=== PATIENT | male | born 1945 | race Caucasian/White ===

== ENCOUNTER 2016-09-25 21:45 | Inpatient (IN) | payer MEDICARE, OTHER ==
--- NOTE | ~2016-09-25 | CO ---
Unit #: [id number] #: [id number] Patient: MY WEISS [id number] [address] [address] [id number] I MR#: [id number] NAME: MY WEISS. ROOM: 226 Age: 71 Sex: M Admission Date: 09/25/2016 : 1945 Attending Physician: Gina Lal M.D. Primary Care Physician: No Primary Care Physician CONSULTATION REPORT REASON FOR CONSULTATION 1. Urinary retention. 2. Urinary tract infection. 3. Left hydronephrosis. CHIEF COMPLAINT Difficulty urination and dysuria. HISTORY OF PRESENT ILLNESS The patient is a 71-year-old gentleman, who presents with a two-week history of what began as purulent and malodorous urine as well as decreasing force of stream. He found amoxicillin online and began taking that; however, symptoms worsened. He began having subjective fevers at home and chills with pain in the left flank. He did have one episode of gross hematuria. He presented to the emergency room and Mckinney catheter was placed with a large return of urine output. The patient denies previous treatment or evaluation of his prostate but he states that he has had "a large prostate." PAST MEDICAL HISTORY Essentially negative. PAST SURGICAL HISTORY None. MEDICATIONS 1. Amoxicillin. 2. Vitamins. 3. Azo. ALLERGIES None. FAMILY HISTORY Noncontributory. SOCIAL HISTORY The patient is here with his fiancee. He quit smoking 35 years ago. Negative for alcohol. REVIEW OF SYSTEMS A 12-point review of systems was performed. It was positive for left flank pain, gross hematuria, fevers, chills, abdominal pain. Unit #: [id number] #: [id number] Patient: MY WEISS PHYSICAL EXAMINATION GENERAL: Reveals a well-developed white male in no acute distress. VITAL SIGNS: Temperature 97.6, blood pressure 145/66, pulse 76, respirations 18. HEENT: Normocephalic and atraumatic. Extraocular movements are intact. NECK: Supple. No lymphadenopathy. LUNGS: Patient has symmetric chest rise and is breathing comfortably. ABDOMEN: Soft, nontender, nondistended. GENITOURINARY: He has a very large nonreducible bilateral inguinal hernias. RECTAL: His digital rectal exam reveals an enlarged prostate without nodules. EXTREMITIES: No clubbing, cyanosis, or edema. Pulses: Regular rate and rhythm radial pulses. DIAGNOSTIC STUDIES LABORATORY: Creatinine is 1.5 on admission, it is 1 after catheter placement. White blood cell count 19.4, hemoglobin 12.8. Urinalysis is nitrite positive, leukocyte esterase positive, 25-50 red blood cells, 100-200 white blood cells. IMAGING: CT scan: Noncontrasted CT scan of the abdomen and pelvis was reviewed independently with the findings of mild left hydroureteronephrosis down to the level of the bladder. Bladder is decompressed with a Mckinney catheter. He has a large prostate. ASSESSMENT AND PLAN 1. Urinary tract infection: I agree with the Rocephin. We will follow his cultures. 2. Urinary retention: Will switch his Flomax to Rapaflo (1) voiding trial in the future. 3. Left hydronephrosis: He may have passed a stone. We will repeat a renal ultrasound tomorrow. We will hold a stent right now because he is improving. 4. Gross hematuria: He will need a cystoscopy later in the future as an outpatient and possibly a contrasted study as well. Dictated by... Eamon Toussaint/roger TD: 09/26/2016 12:50 JOB #: [id number] CONSULTATION REPORT Page 1 of 1 X Hema Mcfadden MD X CONSULTATION REPORT
--- NOTE | ~2016-09-25 | HP ---
Unit #: [id number] #: [id number] Patient: MY WEISS [id number] [address] [place], [place] [address] [id number] I MR#: [id number] NAME: MY WEISS. ROOM: 05871 Age: 71 Sex: M Admission Date: 09/25/2016 : 1945 Attending Physician: Blanka Gaines M.D. Primary Care Physician: No Primary Care Physician HISTORY AND PHYSICAL CHIEF COMPLAINT Left pyelonephritis, bladder outlet obstruction, and acute kidney injury. HISTORY This pleasant, 71-year-old male with history of bilateral inguinal hernias is admitted for bladder outlet obstruction with pyelonephritis. Patient states that he was well until two weeks prior to admission when he began to experience dysuria and malodorous urine with some purulence of the urine. He was able to obtain amoxicillin online and has been taking 500 mg t.i.d. He began to experience left flank pain; some fevers and chills; and, two nights ago, mild hematuria. Around 11 o'clock today, he felt feverish with pain in the penis itself and suprapubic pain with difficulty voiding. He presented to this emergency department tonight with an elevated blood pressure and purulent urine. A Mckinney catheter was placed and the patient had a large amount of urinary output. CT scan shows mild left hydro with mild left hydroureter, but no stone is seen. Large bilateral inguinal hernias are also noted. Marked enlargement of the prostate. In the ER, the patient was given 4 mg of IV morphine and is receiving 2 g of Rocephin along with a liter of saline. He is tender, left flank region. Also noted to have very large bilateral inguinal hernias. PAST MEDICAL HISTORY 1. Inguinal hernias, which the patient has been reducing frequently. 2. History of a murmur as a child. ALLERGIES None. HOME MEDICATIONS 1. Amoxicillin. 2. Vitamins. 3. Azo. FAMILY HISTORY Negative for kidney disease, except for post infectious nephritis. SOCIAL HISTORY The patient lives alone with his cats, but he is accompanied by his fiancee. He stopped smoking 35 years ago. No longer drinks alcohol. REVIEW OF SYSTEMS Notable for urinary symptoms as dictated above, fevers, chills, abdominal Unit #: [id number] #: [id number] Patient: MY WEISS W pain, and inguinal hernias. Patient also notes some sinus and bronchial symptoms along with itchy eyes and a rash. All other systems were reviewed and are negative. PHYSICAL EXAMINATION GENERAL APPEARANCE: Pleasant, 71-year-old male who is pale appearing, mildly anxious, but in no acute distress. VITAL SIGNS: Temperature 98.3, pulse 107, respirations 18, blood pressure 189/110, and O2 saturation 100% on room air. HEENT: Eyes: PERRLA. Extraocular muscles are intact. Pharynx: Benign. NECK: Supple without adenopathy or thyromegaly. CHEST: Clear. BACK: With left CVA percussion tenderness. CARDIAC: Normal S1 and S2 with a soft systolic murmur heard at the right upper sternal border; however, systolic and diastolic murmurs are heard at the left side and towards the apex. ABDOMEN: Bowels sounds are present. No hepatosplenomegaly, tenderness, or masses. EXTREMITIES: Without C, C, or E. Pedal pulses are present. No splinter hemorrhages noted over the fingernail beds. : Reveals large bilateral inguinal hernias. NEUROLOGIC: Patient is awake, alert, and oriented. Cranial nerves are intact. Equal strength throughout. DIAGNOSTIC STUDIES LABORATORY: Hematocrit is 44.5, white blood count is 21.2, normal MCV and platelet count with 4 bands noted. SMA-12: Glucose 194, BUN 33, creatinine 1.5 without previous values for comparison, CO2 19, and albumin is 5.3. Amylase mildly elevated with normal lipase. Urinalysis: Positive leukocyte esterase and nitrates, 25-50 red cells, 100-200 white cells, and 4+ bacteria. IMAGING: CT scan: Mild left hydronephrosis and hydroureter. However, no stone is seen. This may be consistent with a passed stone. Large bilateral inguinal hernias containing fat. Left hernia contains colon. Right hernia contains small bowel. Marked enlargement of the prostate. ASSESSMENT 1. Left-sided pyelonephritis with mild left hydroureter and hydronephrosis. Patient may have passed a stone, I am unsure. 2. BPH with bladder outlet obstruction. 3. Acute kidney injury likely related to bladder outlet obstruction. 4. Likely reactive hyperglycemia. 5. Likely reactive hypertension. Will repeat blood pressure when patient is more relaxed and no longer in pain. 6. Systolic and diastolic murmurs on exam. 7. Metabolic acidosis secondary to acute kidney injury and infection. 8. Large bilateral inguinal hernias, which the patient is reducing on a frequent basis. PLANS 1. IV fluids and repeat labs in the morning. 2. Continue Rocephin. 3. Flomax. 4. Urology consultation. 5. Obtain EKG and echo. Check thyroid function test. 6. Patient will be given name of [facility] at time of discharge for elective inguinal hernia repair as an outpatient. Unit #: [id number] #: [id number] Patient: MY WEISS Dictated by Eamon Canales/maricruz TD: 09/26/2016 05:11 JOB #: [id number] HISTORY AND PHYSICAL Page 1 of 1 X Blanka Gaines MD X HISTORY AND PHYSICAL
--- NOTE | ~2016-09-25 | CO ---
Unit #: [id number] #: [id number] Patient: MY WEISS [id number] [address] [place], [place] [address] [id number] I MR#: [id number] NAME: MY WEISS ROOM: 226 Age: 71 Sex: M Admission Date: 09/25/2016 : 1945 Attending Physician: Guera Pitt M.D. Consultation Date: 09/27/2016 CONSULTATION REPORT BRIEF SUMMARY The patient is a 71-year-old white male, who was admitted complaining of flank pain with evidence of probably some pyelonephritis and urinary tract infection. He also has chronic large bilateral partially reducible inguinal hernias which he has had for over 10 years. The right side seems to be slightly more symptomatic than the left. He has had no obstructive symptoms in the past. He denies any chronic straining with urination or defecation up until now when he had problems with urinary retention. He has had no chronic cough. He has had a heart murmur since childhood which he states is asymptomatic. He has never been in the hospital and never been seen by doctor in the past. PHYSICAL EXAMINATION VITAL SIGNS: The patient is afebrile. Vital signs are normal. HEENT: Not remarkable. NECK: Supple. CHEST: There is equal bilateral expansion with bilateral equal breath sounds. LUNGS: Clear bilaterally. HEART: There is a grade 3/6 systolic ejection murmur best heard at the left upper sternal border. No evidence of any cardiomegaly clinically. ABDOMEN: Soft and nontender without mass or organomegaly. There is no gross abdominal distention. No guarding or rebound. Active bowel sounds present. No evidence of ascites. There are bilateral large partially reducible inguinal hernias with a very dilated scrotum. EXTREMITIES: Full range of motion without limitation. There is no evidence of peripheral edema. BACK: There is no CVA tenderness. NEUROLOGIC: Grossly intact. IMPRESSION The patient has large bilateral asymptomatic inguinal hernias with recent urinary tract infection and pyelonephritis and heart murmur. Would recommend Cardiology evaluation with clearance for surgery and after his urinary tract problems are resolved, would plan on inguinal hernia repairs one at a time electively in several weeks. Dictated by... Juan Snow Jr., M.D. JMB/arlene TD: 09/27/2016 06:43 Unit #: [id number] #: [id number] Patient: ISELA,MY Estevez JOB #: [id number] CONSULTATION REPORT Page 1 of 1 X Juan Snow MD CONSULTATION REPORT
--- NOTE | ~2016-09-25 | EKG ---
PATIENT: MY WEISS UNIT #: [id number] Ventricular Rate: 67 BPM Atrial Rate: 67 BPM P-R Interval: 224 ms QRS Duration: 102 ms Q-T Interval: 434 ms QTC Calculation(Bezet): 458 ms P Colton: 89 degrees Calculated R Colton: 46 degrees Calculated T Colton: 144 degrees Diagnosis Line: Sinus rhythm with 1st degree A-V block with Diagnosis Line: Premature atrial complexes Diagnosis Line: Septal infarct , age undetermined Diagnosis Line: ST and T wave abnormality, consider inferior Diagnosis Line: ischemia Diagnosis Line: Abnormal ECG Diagnosis Line: No previous ECGs available Diagnosis Line: Confirmed by RODNEY HOWELL MD ([id number]) on 09/28/2016 Diagnosis Line: 8:27:41 PM INTERPRETING MD: DANTE MILLER
--- NOTE | ~2016-09-25 | CT3 ---
[facility] A Service of [facility] & [facility] RADIOLOGY TEXT RESULTS PATIENT: MY WEISS LOCATION: A : [birth year] UNIT #: [id number] AGE: [address]: Guera Pitt MD SEX: M ORDER DR: [id number] [facility] [address] [facility] [facility]. [place], [place] [address] [id number] I MR#: [id number] Acc #: [id number] NAME: MY WEISS : 1945 SEX: M STUDY DATE/TIME: 09/26/2016 15:05 UNIT: C2A ROOM: [facility] STUDY DESCRIPTION: CT Abd and Pelv WWo Cont Attending Physician: Gina Lal M.D. Ordering Physician: Hema Mcfadden M.D. Primary Care Physician: No Primary Care Physician MEDICAL IMAGING REPORT This report is preliminary unless electronic signature is present EXAM CT of the abdomen and pelvis with and without contrast. INDICATIONS Difficulty urinating and burning urination since September 25, 2016. Patient had a CT scan on September 25 which showed left-sided hydronephrosis. TECHNIQUE Axial precontrast imaging was obtained through the abdomen and pelvis. This was followed by arterial phase and 90-second delayed-phase imaging through the kidneys and 5-minute delayed-phase imaging through the abdomen and pelvis. This CT exam was performed with one or more of the following radiation dose reduction techniques: automatic exposure control, adjustment of mA and/or kV according to patient size, and iterative reconstruction. FINDINGS Images through the lung bases demonstrate some bibasilar atelectasis. The patient does appear to have some mild left-sided hydronephrosis. There is a mildly prominent extrarenal pelvis on the right without ridge hydronephrosis. No renal stones are identified. There is some perinephric stranding. There is a tiny low-attenuation lesion identified within the left kidney which could reflect a cyst, but is too small to accurately characterize. Single renal arteries are identified bilaterally, and renal vein anatomy appears to be within normal limits. Single renal collecting systems are identified bilaterally. Patient does not have any contrast extending past the left ureteropelvic junction, and the distal ureter appears dilated. There is a suggestion of an asymmetric mass involving the left ureterovesical junction. It is difficult to assess as the patient does not have excreted contrast material within the bladder. It could reflect some enlarged prostate gland, however, again I think the findings are suspicious for a mass involving the left bladder [facility] A Service of [facility] RADIOLOGY TEXT RESULTS PATIENT: MY WEISS LOCATION: [facility] 226- : [birth year] UNIT #: [id number] AGE: [address]: Guera Pitt MD SEX: M ORDER DR: hoa muñiz. This could certainly account for the patient's dilated left ureter. This patient has a Mckinney catheter in place. There is bladder wall thickening, some of which may reflect incomplete distension. Patient's prostate gland is markedly enlarged and there are extremely large bilateral inguinal hernias containing much of the omentum and bowel. There, is however, no evidence of obstruction.. Liver appears unremarkable as is the spleen. Stomach is probably within normal limits. Again, there is no evidence of mechanical bowel obstruction. There may be a lipid rich adrenal adenoma on the right. Left adrenal gland is normal. I do not think retroperitoneal lymph nodes appear particularly large. There is some atherosclerotic involvement of the abdominal aorta. This does extend into the superior mesenteric artery, which does appear to show some narrowing in the range of about 40% in its midportion. I do not see any free fluid or adenopathy within the pelvis. Review of bony windows demonstrates extensive degenerative change most pronounced at L4-L5 and L5-S1, although, I do not see any definite aggressive osseous abnormalities. IMPRESSION 1. This patient has mild left-sided hydronephrosis. On the 5-minute delayed phase images, I do not see any excreted contrast material within the ureter distal to the left ureteropelvic junction. The possibility of left UPJ stricture should be considered. Furthermore, the patient's distal left ureter is very dilated, and I wonder if it is being obstructed by a potential mass involving the left side of the bladder. This may reflect some protrusion of the prostate gland into the bladder, but I think it is certainly worrisome for an additional mass lesion. Correlation with cystoscopy is recommended. 2. Mildly prominent extrarenal pelvis on the right. No evidence of obstruction. 3. Patient does have a Mckinney catheter in place. Patient's prostate gland is markedly enlarged. 4. This patient has massive bilateral inguinal hernias with much of the bowel and omentum contained within the scrotum, this does not appear to be resulting in any obstruction. 5. Please see the body of the report for any other additional incidental findings. Dictated by... Rahel Escalera M.D. THIS IS AN ELECTRONICALLY VERIFIED REPORT Rahel Escalera M.D. at 09/29/2016 4:51 PM AFF/jt TD: 09/26/2016 20:50 JOB #: [id number] [facility] A Service of [facility] & [facility] RADIOLOGY TEXT RESULTS PATIENT: MY WEISS LOCATION: [place] [address] : [birth year] UNIT #: [id number] AGE: [address]: Guera Pitt MD SEX: M ORDER DR: MEDICAL IMAGING REPORT Page 1 of 1 COPY
--- NOTE | ~2016-09-25 | DS ---
Unit #: [id number] #: [id number] Patient: MY WEISS [id number] [address] [address] [id number] I MR#: [id number] NAME: MY WEISS. ROOM: 226 Age: 71 Sex: M Admission Date: 09/25/2016 : 1945 Discharge Date: 09/29/2016 Attending Physician: Guera Pitt M.D. Primary Care Physician: No Primary Care Physician DISCHARGE SUMMARY DIAGNOSIS ON ADMISSION Left pyelonephritis, acute kidney injury, bladder outlet obstruction. DIAGNOSES ON DISCHARGE 1. Acute Escherichia coli cystitis. 2. Acute urinary retention. 3. Benign prostatic hypertrophy. 4. Hydronephrosis. 5. Bilateral large inguinal hernias. 6. Sepsis, improved. CONSULTANTS 1. Dr. Snow - Surgical consultation. 2. Dr. Mcfadden - Urology consultation. LABS AND PROCEDURES DONE The patient's creatinine is 0.9, sodium 131, potassium is 4.1. AST and ALT are within normal limits. WBC 6.8, hemoglobin is 12.9, platelet count is 149. Urine culture was positive for E. coli which is sensitive to Bactrim. The patient had a CT scan of abdomen and pelvis done which revealed left sided hydronephrosis. The patient has massive bilateral inguinal hernias. Hemoglobin A1c is 5.6. Vitamin B12 level was 1153. TSH level was 1.34. HOSPITAL COURSE 71-year-old male was admitted to [facility] with left pyelonephritis. Details are as per admission H and P. The patient stated that he is in his usual good state of health and he did not see any doctor for the last 35 years. He had bilateral inguinal hernias though. Bilateral inguinal hernias: Dr. Snow saw patient in consultation and recommended to do surgery on an outpatient basis once patient's infection is cleared. Acute Escherichia coli cystitis and possible pyelonephritis: The patient was treated with initially IV antibiotics and he will be discharged home on Bactrim. Left hydronephrosis: Dr. Mcfadden has recommended to follow up on Unit #: [id number] #: [id number] Patient: ISELA,MY W outpatient basis. Acute urinary retention secondary to benign prostatic hypertrophy: The patient's Mckinney catheter is discontinued today and he has not voided yet. If patient is unable to void, then we will call Dr. Mcfadden and he may go home with Mckinney catheter. The patient also has a history of murmur and he had an echo done with ejection fraction of 50% to 55%. The murmur was related to probably aortic outflow. The patient had mild tricuspid regurgitation. Today, patient is comfortable. He is not in acute distress. He is anxious to go home. VITAL SIGNS reveal a temperature of 99 degrees, pulse is 62/minute, respiratory rate is 18/minute, blood pressure was 170/98. HEENT examination revealed no conjunctival congestion. Sclerae is nonicteric. NECK is supple, trachea is central. RESPIRATORY examination revealed decreased breath sounds bilaterally. There are no wheezes or crackles. HEART has regular rate and rhythm, S1, S2. Systolic murmur is present. ABDOMEN is soft, nontender. Bowel sounds are present in all four quadrants. NEUROLOGICALLY, patient is alert to person, place and time. Strength is 4+ bilaterally. SKIN is warm and dry. GENITOURINARY - patient has bilateral large inguinal hernias with scrotal swelling which are (1) reducible. RECOMMENDATIONS ON DISCHARGE 1. Condition is stable. 2. Activity as tolerated. MEDICATIONS 1. Rapaflo 8 mg p.o. q. h.s. 2. Tylenol 650 mg p.o. q.4 hours p.r.n. for pain. 3. Bactrim DS, one p.o. b.i.d. for one week. FOLLOWUP 1. The patient is advised to follow up with Urology in one week and with Dr. nSow in two weeks. 2. The patient is advised to follow up with primary care physician or go to ER if his condition changes. The patient stated that he is trying to find a primary care physician and has a list given by the hospital. The patient shows understanding to the fact that his compliance is very important. Dictated by... Eamon Hart TD: 09/29/2016 12:22 JOB #: [id number] CC: Eamon Toussaint Jr., M.D. Unit #: [id number] #: [id number] Patient: MY WEISS DISCHARGE SUMMARY Page 1 of 1 X Guera Pitt MD DISCHARGE SUMMARY
--- NOTE | ~2016-09-25 | CT4 ---
[facility] A Service of [facility] & [facility] RADIOLOGY TEXT RESULTS PATIENT: MY WEISS LOCATION: [facility] 226-01 : 47 UNIT #: [id number] AGE: [address]: Gina Lal MD SEX: M ORDER DR: [id number] [facility] [address] [place], [place] [address] [id number] MR#: [id number] Acc #: [id number] NAME: MY WEISS. : 1945 SEX: M STUDY DATE/TIME: 09/25/2016 21:58 UNIT: CEDOF ROOM: [id number] STUDY DESCRIPTION: CT Abd and Pelv Wo Cont Attending Physician: Blanka Gaines M.D. Ordering Physician: Nikita Sun M.D. Primary Care Physician: Primary Care Physician No MEDICAL IMAGING REPORT This report is preliminary unless electronic signature is present EXAM CT scan of the abdomen and pelvis without contrast 09/25/2016 HISTORY Difficulty urinating, burning urination since 11:00 a.m. today. Urinary tract infection, left flank pain and bilateral groin pain today. Evaluate for obstructing renal calculus. TECHNIQUE Spiral CT was performed through the abdomen and pelvis without oral or intravenous contrast administration using renal stone protocol. This CT examination was performed with one or more of the following radiation dose reduction techniques: automatic exposure control, adjustment of mA and/or kV according to patient size, and iterative reconstruction. FINDINGS There is no prior exam for comparison. There is mild left hydronephrosis and hydroureter but no obstructing renal or ureteral calculus is seen. Findings could reflect a recently passed stone but no calculus is seen within the bladder. Clinical correlation is recommended. The right kidney is normal. The visualized liver, spleen, pancreas, gallbladder and biliary tree and adrenal glands are normal. PELVIS: There are large bilateral inguinal hernias. The right inguinal hernia contains a loop of small bowel and the left inguinal hernia contains colon. There is no evidence of bowel obstruction. The gut is otherwise unremarkable. No adenopathy is seen and there is no free fluid in the abdomen or pelvis. The bladder is partially decompressed by Mckinney catheter. There is marked enlargement of the prostate which measures 7.3 cm x 5.9 cm x approximately 6 cm. IMPRESSION 1. Mild left hydronephrosis and hydroureter but no obstructing renal or STS. [facility] A Service of [facility] & [facility] / [facility] RADIOLOGY TEXT RESULTS PATIENT: MY WEISS LOCATION: [facility] 226-01 : [birth year] UNIT #: [id number] AGE: [address]: Gina Lal MD SEX: M ORDER DR: ureteral calculus is seen. Findings may reflect a recently passed stone but no calculus is seen within the bladder. Clinical correlation is recommended. 2. Large bilateral inguinal hernias containing mesenteric fat. The right inguinal hernia contains a loop of small bowel and the left inguinal hernia contains a loop of colon. No bowel obstruction is seen. 3. Marked enlargement of the prostate. Dictated by... David Eisenberg M.D. THIS IS AN ELECTRONICALLY VERIFIED REPORT Dvaid Eisenberg M.D. at 09/26/2016 3:40 PM ANANDA/catrina TD: 09/26/2016 06:06 JOB #: [id number] MEDICAL IMAGING REPORT Page 1 of 1 COPY
[2016-09-25 21:18] LABS: BASOPHIL% 0.2 % (0-2.5); DIFF IND YES; HEMATOCRIT 44.5 % (38.0-50.0); HEMOGLOBIN 14.6 gm/dL (13.0-16.0); LYMPHOCYTE# 0.4 X10e3 (1.0-3.5); LYMPHOCYTE% 1.7 % (17.0-45.0); MEAN CELL VOLUME 84.8 FL (83-96); MEAN CORPUSCULAR HEMOGLOBIN 27.8 PG (28-34); MEAN CORPUSCULAR HGB CONC 32.8 g/dL (30-36); MEAN PLATELET VOLUME 9.9 FL (6.5-11.5); MONOCYTE# 0.9 X10e3 (0-1.0); MONOCYTE% 4.4 % (3.0-12.0); NEUTROPHIL# 19.9 X10e3 (1.5-7.1); NEUTROPHIL% 93.7 % (40-75); PLATELET COUNT 227 X10e3 (140-420); RED BLOOD COUNT 5.24 X10e (3.90-5.60); RED CELL DISTRIBUTION WIDTH 13.8 % (11.0-15.5); WHITE BLOOD COUNT 21.2 X10e3 (4.0-10.5)
[2016-09-25 21:43] LABS: ALBUMIN SERUM 5.3 g/dL (3.5-5.0); BILIRUBIN, DIRECT 0.1 mg/dL (0.0-0.2); BILIRUBIN,TOTAL 1.1 mg/dL (0.2-2.0); CALCIUM SERUM 9.8 mg/dL (8.4-10.2); CREATININE SERUM 1.5 mg/dL (0.6-1.4); GLOM FILT RATE Estimated 46.8 mL/min (>60); POTASSIUM 4.4 mmol/L (3.5-5.1); PROTEIN TOTAL SERUM 8.5 g/dL (6.0-8.3)
[2016-09-25 22:24] LABS: URINE APPEARANCE CLOUDY; URINE BILIRUBIN NEG (NEG); URINE BLOOD 3+ (NEG); URINE COLOR DK YELLOW; URINE GLUCOSE NEG (NEG); URINE KETONE NEG (NEG); URINE LEUKOCYTE ESTERASE 3+ (NEG); URINE NITRATE POS (NEG); URINE PROTEIN 1+ (NEG); URINE SPECIFIC GRAVITY 1.012 (1.003-1.035)
[2016-09-25 22:25] LABS: PLATELET ESTIMATE NORMAL (NORMAL); RBC NORMAL YES; SMUDGE CELLS 12 /100
[2016-09-25 22:27] LABS: CULTURE INDICATED? YES; URBCS1 AUWI 25-50 /[HPF] (0-2); URINE BACTERIA AUWI 4+ (NEGATIVE); URINE SQUAMOUS EPITHELIAL CELL NONE SEEN /[HPF]; UWBCS1 AUWI 100-200 (0-5)
[2016-09-25 22:31] LABS: URINE SOURCE CATH
[2016-09-26 04:00] LABS: BASOPHIL% 0.1 % (0-2.5); DIFF IND NO; HEMATOCRIT 39.4 % (38.0-50.0); HEMOGLOBIN 12.8 gm/dL (13.0-16.0); LYMPHOCYTE# 0.8 X10e3 (1.0-3.5); LYMPHOCYTE% 4.2 % (17.0-45.0); MEAN CELL VOLUME 84.9 FL (83-96); MEAN CORPUSCULAR HEMOGLOBIN 27.5 PG (28-34); MEAN CORPUSCULAR HGB CONC 32.4 g/dL (30-36); MEAN PLATELET VOLUME 9.6 FL (6.5-11.5); MONOCYTE% 5.3 % (3.0-12.0); NEUTROPHIL# 17.5 X10e3 (1.5-7.1); NEUTROPHIL% 90.4 % (40-75); PLATELET COUNT 168 X10e3 (140-420); RED BLOOD COUNT 4.64 X10e (3.90-5.60); RED CELL DISTRIBUTION WIDTH 13.7 % (11.0-15.5); WHITE BLOOD COUNT 19.4 X10e3 (4.0-10.5)
[2016-09-26 04:25] LABS: CALCIUM SERUM 8.8 mg/dL (8.4-10.2); GLOM FILT RATE Estimated 76.5 mL/min (>60); POTASSIUM 3.8 mmol/L (3.5-5.1)
[2016-09-26 04:56] LABS: THYROID STIMULATING HORMONE 1.34 uIU/ml (0.34-5.60)
[2016-09-26 05:03] LABS: FREE THYROXIN (T4) 0.92 ng/dL (0.58-1.64)
[2016-09-26] MEDS ORDERED: NO MEDICATIONS (08:20)
[2016-09-27 06:16] LABS: HEMATOCRIT 35.8 % (38.0-50.0); HEMOGLOBIN 11.8 gm/dL (13.0-16.0); MEAN CELL VOLUME 84.7 FL (83-96); MEAN CORPUSCULAR HEMOGLOBIN 27.9 PG (28-34); MEAN CORPUSCULAR HGB CONC 32.9 g/dL (30-36); MEAN PLATELET VOLUME 9.8 FL (6.5-11.5); RED BLOOD COUNT 4.22 X10e (3.90-5.60); RED CELL DISTRIBUTION WIDTH 13.7 % (11.0-15.5)
[2016-09-27 06:19] LABS: WHITE BLOOD COUNT 8.8 X10e3 (4.0-10.5)
[2016-09-27 07:43] LABS: CALCIUM SERUM 8.2 mg/dL (8.4-10.2); CREATININE SERUM 0.9 mg/dL (0.6-1.4); GLOM FILT RATE Estimated 86.8 mL/min (>60); POTASSIUM 3.4 mmol/L (3.5-5.1)
[2016-09-29 07:19] LABS: HEMATOCRIT 39.9 % (38.0-50.0); HEMOGLOBIN 12.9 gm/dL (13.0-16.0); MEAN CELL VOLUME 86.2 FL (83-96); MEAN CORPUSCULAR HEMOGLOBIN 27.9 PG (28-34); MEAN CORPUSCULAR HGB CONC 32.3 g/dL (30-36); MEAN PLATELET VOLUME 9.7 FL (6.5-11.5); RED BLOOD COUNT 4.63 X10e (3.90-5.60); WHITE BLOOD COUNT 6.8 X10e3 (4.0-10.5)
[2016-09-29 07:45] LABS: BUN/CREATININE RATIO 15.55; CALCIUM SERUM 8.8 mg/dL (8.4-10.2); CREATININE SERUM 0.9 mg/dL (0.6-1.4); GLOM FILT RATE Estimated 86.8 mL/min (>60); POTASSIUM 4.1 mmol/L (3.5-5.1)
[2016-09-29] MEDS ORDERED: RAPAFLO8 MG PO (13:00)
[2016-09-29] MEDS ORDERED: ACETAMINOPHEN (13:01)
[2016-09-29] MEDS ORDERED: BACTRIM DS TAB1 EACH (13:01)
[2016-12-18] MEDS ORDERED: [UNRECOGNIZED DRUG - OTHER] TOP (06:53)
[2016-12-18] MEDS ORDERED: DIFLUCAN10 MG/1 ML PO (06:54)
[2016-12-18] MEDS ORDERED: DIFLUCAN PO (06:57)
[2016-12-18] MEDS ORDERED: MAGNESIUM CITR100 MG PO (15:15)
[2016-12-18] MEDS ORDERED: MILK OF MAGNESIA PO (15:17)
[2017-01-29] MEDS ORDERED: BUSPIRONE HCL7.5 MG PO (15:08)
[2017-01-29] MEDS ORDERED: ALPRAZOLAM0.5 MG PO (15:08)
[2017-01-29] MEDS ORDERED: DESYREL50 MG PO (15:08)
[2017-01-29] MEDS ORDERED: FLOMAX0.4 M1 (15:09)
[2017-01-29] MEDS ORDERED: PAROXETINE HCL20 MG PO (15:09)
[2017-01-29] MEDS ORDERED: ZESTRIL5 MG PO (15:09)
[2017-01-29] MEDS ORDERED: ZOFRAN8 MG PO (15:11)
[2017-01-29] MEDS ORDERED: OMEPRAZOLE40 M1 PO (15:12)
[2017-01-29] MEDS ORDERED: TRAMADOL HCL50 M1 PO (15:12)
[2017-01-29] MEDS ORDERED: POTASSIUM CHLO10 ME1 PO (15:13)
[2017-01-29] MEDS ORDERED: LASIX20 MG PO (15:13)
[2017-01-29] MEDS ORDERED: STOOL SOFTENER100 M1 PO (15:14)
[2017-01-29] MEDS ORDERED: MULTI VITAMIN1 EACH PO (15:15)
[2017-01-29] MEDS ORDERED: GAS RELIEF125 M1 PO (15:15)
[2017-01-29] MEDS ORDERED: LAXATIVE5 MG (15:16)
[2017-01-29] MEDS ORDERED: MELATIN3 MG (15:17)
[2017-02-14] MEDS ORDERED: BUSPIRONE HCL7.5 MG PO (20:19)
[2017-02-14] MEDS ORDERED: XANAX0.5 MG PO (20:19)
[2017-02-14] MEDS ORDERED: ZESTRIL5 MG PO (20:20)
[2017-02-14] MEDS ORDERED: PAROXETINE HCL20 M1 PO (20:20)
[2017-02-14] MEDS ORDERED: TRAMADOL HCL50 M1 PO (20:21)
[2017-02-14] MEDS ORDERED: FLOMAX0.4 M1 PO (20:21)
[2017-02-14] MEDS ORDERED: DESYREL50 MG PO (20:22)
[2017-02-17] MEDS ORDERED: FLONASE 0.05% N16 GM (09:52)
[2017-02-17] MEDS ORDERED: TYLENOL #4 PO (09:53)
[2017-02-17] MEDS ORDERED: CEFEPIME 22 GM/100 M IV (09:54)
== END 2016-09-29 18:14 | disposition home health service (06) | DRG 872 ==
LOC: CED 21:45 → CEDOF 23:50 → C2A 09-26 07:50
PROVIDERS: Emergency Medicine; Internal Medicine
PROC: B246ZZZ Ultrasonography of Right and Left Heart (ICD-10-PCS; principal; 2016-09-26)
DX: A41.9 Sepsis, unspecified organism (principal); N17.9 Acute kidney failure, unspecified; I07.1 Rheumatic tricuspid insufficiency; N13.4 Hydroureter; N30.01 Acute cystitis with hematuria; N12 Tubulo-interstitial nephritis, not specified as acute or chronic; B96.20 Unspecified Escherichia coli [E. coli] as the cause of diseases classified elsewhere; N40.1 Benign prostatic hyperplasia with lower urinary tract symptoms; R33.8 Other retention of urine; K40.20 Bilateral inguinal hernia, without obstruction or gangrene, not specified as recurrent; N32.0 Bladder-neck obstruction; R01.1 Cardiac murmur, unspecified; Z87.891 Personal history of nicotine dependence; E87.6 Hypokalemia
CPT/HCPCS: 36415; 51702; 74176; 74178; 80048; 80076; 81003; 82150; 82607; 83036; 83690; 84439; 84443; 85025; 85027; 87086; 87088; 87186; 93005; 93306; 96374; 99285; J0696; J2270; J2405; J3480; Q9967

== ENCOUNTER 2016-10-11 07:53 | Emergency (ER) | payer MEDICARE, OTHER ==
--- NOTE | ~2016-10-11 | CT4 ---
[facility] A Service of [facility] & [facility] RADIOLOGY TEXT RESULTS PATIENT: YM WEISS LOCATION: [facility] : 47 UNIT #: [id number] AGE: [address]: Seth Camp DO SEX: M ORDER DR: [id number] [facility] [address] [place], [place] [address] [id number] MR#: [id number] Acc #: [id number] NAME: MY WEISS : 1945 SEX: M STUDY DATE/TIME: 10/11/2016 10:48 UNIT: [facility] ROOM: STUDY DESCRIPTION: CT Abd and Pelv Wo Cont Attending Physician: Seth Camp D.O. Ordering Physician: Seth Camp D.O. Primary Care Physician: No Primary Care Physician MEDICAL IMAGING REPORT This report is preliminary unless electronic signature is present EXAM Abdomen and pelvis CT without contrast. HISTORY Urinary retention intermittently since 09/25/2016. Urinary tract infection. TECHNIQUE Axial images were obtained without contrast and compared with 09/26/2016. This CT exam was performed with one or more of the following radiation dose reduction techniques: automatic exposure control, adjustment of mA and/or kV according to patient size, and iterative reconstruction. FINDINGS The liver, spleen, and pancreas are normal in size. Bilateral hydronephrosis is again seen to a mild degree and the ureters are dilated to a moderate degree. This is unchanged. A Mckinney catheter is seen in the bladder. The prostate gland is markedly enlarged. Bladder wall thickening is noted. This is also unchanged. There are large bilateral inguinal hernias. Both of the hernias containing loops of bowel extending down into the scrotum. This is more extensive on the left than on the right and has not changed from the previous exam. There is no evidence of bowel obstruction. The antrum of the stomach is pulled down nearly to the hernia site on the left. No ascitic fluid is seen. IMPRESSION Large bilateral inguinal hernias containing multiple bowel loops, unchanged from the previous exam. A Mckinney catheter is in good position in the bladder. There is bladder wall thickening, prostatic enlargement, and bilateral hydronephrosis and hydroureters that appears stable from the previous exam. No acute or inflammatory changes are seen in the abdomen or pelvis. [facility] A Service of [facility] RADIOLOGY TEXT RESULTS PATIENT: MY WEISS LOCATION: [facility] : 47 UNIT #: [id number] AGE: [address]: Seth Camp DO SEX: M ORDER DR: Dictated by... John Betancourt M.D. THIS IS AN ELECTRONICALLY VERIFIED REPORT John Betancourt M.D. at 10/12/2016 9:12 AM LAYLA/rosalinda TD: 10/11/2016 11:40 JOB #: [id number] MEDICAL IMAGING REPORT Page 1 of 1 COPY
[~2016-10-11 07:53] MED LIST: ACETAMINOPHEN; BACTRIM DS TAB1 EACH; NO MEDICATIONS; RAPAFLO8 MG PO
[2016-10-11 08:48] LABS: URINE SOURCE CLEAN CATCH
[2016-10-11 08:54] LABS: URINE APPEARANCE CLEAR; URINE BLOOD TRACE (NEG); URINE COLOR DK YELLOW; URINE GLUCOSE NEG (NEG); URINE KETONE TRACE (NEG); URINE LEUKOCYTE ESTERASE TRACE (NEG); URINE NITRATE POS (NEG); URINE PH 5.5 (5-8); URINE PROTEIN 1+ (NEG); URINE SPECIFIC GRAVITY 1.014 (1.003-1.035)
[2016-10-11 08:57] LABS: URINE BACTERIA AUWI NEG (NEGATIVE); URINE SQUAMOUS EPITHELIAL CELL NONE SEEN /[HPF]
[2016-10-11 09:04] LABS: CULTURE INDICATED? NO; URINE BILIRUBIN POS (NEG)
[2016-10-11 09:20] LABS: BASOPHIL% 0.1 % (0-2.5); EOSINOPHIL% 0.1 % (0.0-7.0); HEMATOCRIT 37.3 % (38.0-50.0); HEMOGLOBIN 12.1 gm/dL (13.0-16.0); LYMPHOCYTE# 0.3 X10e3 (1.0-3.5); LYMPHOCYTE% 3.3 % (17.0-45.0); MEAN CELL VOLUME 85.7 FL (83-96); MEAN CORPUSCULAR HEMOGLOBIN 27.7 PG (28-34); MEAN CORPUSCULAR HGB CONC 32.4 g/dL (30-36); MEAN PLATELET VOLUME 9.7 FL (6.5-11.5); MONOCYTE# 0.7 X10e3 (0-1.0); NEUTROPHIL# 8.5 X10e3 (1.5-7.1); NEUTROPHIL% 89.5 % (40-75); PLATELET COUNT 181 X10e3 (140-420); RED BLOOD COUNT 4.36 X10e (3.90-5.60); RED CELL DISTRIBUTION WIDTH 13.6 % (11.0-15.5); WHITE BLOOD COUNT 9.5 X10e3 (4.0-10.5)
[2016-10-11 09:23] LABS: DIFF IND NO
[2016-10-11 09:49] LABS: ALBUMIN SERUM 4.2 g/dL (3.5-5.0); BILIRUBIN,TOTAL 0.8 mg/dL (0.2-2.0); BUN/CREATININE RATIO 17.5; CALCIUM SERUM 9.1 mg/dL (8.4-10.2); CREATININE SERUM 1.6 mg/dL (0.6-1.4); GLOM FILT RATE Estimated 43.3 mL/min (>60); POTASSIUM 4.1 mmol/L (3.5-5.1); PROTEIN TOTAL SERUM 6.7 g/dL (6.0-8.3)
[2016-12-18] MEDS ORDERED: [UNRECOGNIZED DRUG - OTHER] TOP (06:53)
[2016-12-18] MEDS ORDERED: DIFLUCAN10 MG/1 ML PO (06:54)
[2016-12-18] MEDS ORDERED: DIFLUCAN PO (06:57)
[2016-12-18] MEDS ORDERED: MAGNESIUM CITR100 MG PO (15:15)
[2016-12-18] MEDS ORDERED: MILK OF MAGNESIA PO (15:17)
[2017-01-29] MEDS ORDERED: DESYREL50 MG PO (15:08)
[2017-01-29] MEDS ORDERED: BUSPIRONE HCL7.5 MG PO (15:08)
[2017-01-29] MEDS ORDERED: ALPRAZOLAM0.5 MG PO (15:08)
[2017-01-29] MEDS ORDERED: ZESTRIL5 MG PO (15:09)
[2017-01-29] MEDS ORDERED: PAROXETINE HCL20 MG PO (15:09)
[2017-01-29] MEDS ORDERED: FLOMAX0.4 M1 (15:09)
[2017-01-29] MEDS ORDERED: ZOFRAN8 MG PO (15:11)
[2017-01-29] MEDS ORDERED: TRAMADOL HCL50 M1 PO (15:12)
[2017-01-29] MEDS ORDERED: OMEPRAZOLE40 M1 PO (15:12)
[2017-01-29] MEDS ORDERED: POTASSIUM CHLO10 ME1 PO (15:13)
[2017-01-29] MEDS ORDERED: LASIX20 MG PO (15:13)
[2017-01-29] MEDS ORDERED: STOOL SOFTENER100 M1 PO (15:14)
[2017-01-29] MEDS ORDERED: GAS RELIEF125 M1 PO (15:15)
[2017-01-29] MEDS ORDERED: MULTI VITAMIN1 EACH PO (15:15)
[2017-01-29] MEDS ORDERED: LAXATIVE5 MG (15:16)
[2017-01-29] MEDS ORDERED: MELATIN3 MG (15:17)
[2017-02-14] MEDS ORDERED: XANAX0.5 MG PO (20:19)
[2017-02-14] MEDS ORDERED: BUSPIRONE HCL7.5 MG PO (20:19)
[2017-02-14] MEDS ORDERED: PAROXETINE HCL20 M1 PO (20:20)
[2017-02-14] MEDS ORDERED: ZESTRIL5 MG PO (20:20)
[2017-02-14] MEDS ORDERED: FLOMAX0.4 M1 PO (20:21)
[2017-02-14] MEDS ORDERED: TRAMADOL HCL50 M1 PO (20:21)
[2017-02-14] MEDS ORDERED: DESYREL50 MG PO (20:22)
[2017-02-17] MEDS ORDERED: FLONASE 0.05% N16 GM (09:52)
[2017-02-17] MEDS ORDERED: TYLENOL #4 PO (09:53)
[2017-02-17] MEDS ORDERED: CEFEPIME 22 GM/100 M IV (09:54)
== END 2016-10-11 12:55 | disposition home or self-care (01) ==
LOC: CED 07:53
PROVIDERS: Emergency Medicine
DX: N40.1 Benign prostatic hyperplasia with lower urinary tract symptoms (principal); Z87.440 Personal history of urinary (tract) infections; R33.8 Other retention of urine
CPT/HCPCS: 51702; 74176; 80053; 81003; 83690; 85025; 96372; 99284; J0696

== ENCOUNTER → 2016-11-03 | Outpatient (CLI) | payer MEDICARE, OTHER ==
[~2016-11-03] MED LIST changes: +ALPRAZOLAM0.5 MG PO; +BUSPIRONE HCL7.5 MG PO; +CEFEPIME 22 GM/100 M IV; +DESYREL50 MG PO; +DIFLUCAN PO; +DIFLUCAN10 MG/1 ML PO; +FLOMAX0.4 M1; +FLOMAX0.4 M1 PO; +FLONASE 0.05% N16 GM; +GAS RELIEF125 M1 PO; +LASIX20 MG PO; +LAXATIVE5 MG; +MAGNESIUM CITR100 MG PO; +MELATIN3 MG; +MILK OF MAGNESIA PO; +MULTI VITAMIN1 EACH PO; +OMEPRAZOLE40 M1 PO; +PAROXETINE HCL20 M1 PO; +PAROXETINE HCL20 MG PO; +POTASSIUM CHLO10 ME1 PO; +STOOL SOFTENER100 M1 PO; +TRAMADOL HCL50 M1 PO; +TYLENOL #4 PO; +XANAX0.5 MG PO; +ZESTRIL5 MG PO; +ZOFRAN8 MG PO; +[UNRECOGNIZED DRUG - OTHER] TOP
--- NOTE | ~2016-11-03 | US77 ---
[facility] A Service of [facility] RADIOLOGY TEXT RESULTS PATIENT: MY WEISS LOCATION: [facility] : 47 UNIT #: [id number] AGE: [address]: John Gibson MD SEX: M ORDER DR: [id number] [facility] [address] [place], [place] [address] [id number] O MR#: [id number] Acc #: [id number] NAME: MY WEISS. : 1945 SEX: M STUDY DATE/TIME: 11/03/2016 15:50 UNIT: [facility] ROOM: STUDY DESCRIPTION: US Kidney Bilateral Complete Attending Physician: John Gibson M.D. Referring Physician: John Gibson M.D. Ordering Physician: John Gibson M.D. Primary Care Physician: Saad Farris M.D. MEDICAL IMAGING REPORT This report is preliminary unless electronic signature is present EXAM Bilateral renal ultrasound 11/03/2016. HISTORY Hydronephrosis on recent CT examination. TECHNIQUE Realtime ultrasonography of the kidneys performed. COMPARISON Comparison to CT examination 10/11/2016. FINDINGS Right kidney measures 10.9 cm in greatest length. On current examination, there is no hydronephrosis. No nephrolithiasis, cystic or solid mass lesion or perinephric fluid collection. The left kidney measures 11.83 cm in greatest length. No hydronephrosis, nephrolithiasis, cystic or solid mass lesion and no perinephric fluid collection. Visualized portions of spleen unremarkable. The urinary bladder not visualized due to bowel gas obscuration. IMPRESSION 1. Kidneys appear normal. See discussion above. 2. Urinary bladder not visualized due to bowel gas artifact. Dictated by... Naun Hayden M.D. THIS IS AN ELECTRONICALLY VERIFIED REPORT Naun Hayden M.D. at 11/04/2016 5:16 PM Edil TD: 11/04/2016 11:09 [facility] A Service of [facility] RADIOLOGY TEXT RESULTS PATIENT: MY WEISS LOCATION: [facility] #: [id number] : 47 UNIT #: [id number] AGE: [address]: John Gibson MD SEX: M ORDER DR: GISSELLE #: [id number] MEDICAL IMAGING REPORT Page 1 of 1 COPY
== END | disposition home or self-care (01) ==
LOC: CLAB 15:23
DX: N13.30 Unspecified hydronephrosis (principal)
CPT/HCPCS: 76770

== ENCOUNTER → 2016-12-11 | Outpatient (CLI) | payer MEDICARE, OTHER ==
[2016-12-11 15:57] LABS: HEMATOCRIT 37.5 % (38.0-50.0); HEMOGLOBIN 12.3 gm/dL (13.0-16.0); MEAN CELL VOLUME 85.5 FL (83-96); MEAN CORPUSCULAR HGB CONC 32.8 g/dL (30-36); MEAN PLATELET VOLUME 8.8 FL (6.5-11.5); RED BLOOD COUNT 4.38 X10e (3.90-5.60); RED CELL DISTRIBUTION WIDTH 15.1 % (11.0-15.5); WHITE BLOOD COUNT 6.2 X10e3 (4.0-10.5)
[2016-12-11 16:41] LABS: ALBUMIN SERUM 4.1 g/dL (3.5-5.0); BILIRUBIN,TOTAL 0.2 mg/dL (0.2-2.0); GLOM FILT RATE Estimated 76.5 mL/min (>60); POTASSIUM 4.3 mmol/L (3.5-5.1); PROTEIN TOTAL SERUM 6.7 g/dL (6.0-8.3)
== END | disposition home or self-care (01) ==
LOC: CAMB 14:30
PROVIDERS: Surgery
DX: Z01.812 Encounter for preprocedural laboratory examination (principal); K40.90 Unilateral inguinal hernia, without obstruction or gangrene, not specified as recurrent
CPT/HCPCS: 36415; 80053; 85027

== ENCOUNTER → 2016-12-18 | Day surgery (SDC) | payer MEDICARE, OTHER ==
--- NOTE | ~2016-12-18 | OR ---
Unit #: [id number] #: [id number] Patient: MY WEISS [id number] [address] [place], [place] [address] [id number] O MR#: [id number] NAME: MY WEISS ROOM: Date of Procedure: 12/18/2016 Admission Date: 12/18/2016 Surgeon: Juan Snow Jr., M.D. : 1945 Attending Physician: Juan Snow Jr., M.D. Primary Care Physician: Saad Cline M.D. OPERATIVE REPORT JOB NOTE: CC: DR. MAYA CLINE INDICATION FOR PROCEDURE The patient is a 71-year-old white male with a large bilateral inguinal hernias. The left is the largest and probably contains most of his colon. He is brought in this time for open left inguinal hernia repair. The plan will be to repair his right side approximately 6 weeks. PREOPERATIVE DIAGNOSIS Large left inguinal hernia. POSTOPERATIVE DIAGNOSIS Large left inguinal hernia, noting a sliding inguinal hernia with a large amount of colon within the scrotum. ANESTHESIA General with LMA and 0.5% Marcaine with epinephrine locally. ENGLISH LECTURER Rosanne Rosario. PROCEDURE PERFORMED Reduction and repair of very large left inguinal hernia, which was a sliding hernia with the colon making up portion of the wall. DESCRIPTION OF PROCEDURE The patient was positioned in supine position. After being anesthetized, he was prepped and draped in routine fashion for repair of his left inguinal hernia. A transverse incision was made after the area was locally blocked with 0.5% Marcaine with epinephrine. An incision was approximately 4 to 5 inches in length. This was carried down through the Fab and Camper fascia and the external oblique fascia. The fibers of external oblique were split up from the external ring, which was extremely dilated from there was a large hernia up to the internal ring. The attempts at reducing the hernia were unsuccessful. Therefore, the hernia was opened and a large amount of colon was then replaced back up into the abdomen. The hernia sac was freed up the cord structures and divided and then freed up the cord structures proximally. There was sigmoid colon forming of the wall. One of the tovar of the hernia sac compatible with a sliding hernia, this was freed up and the redundant portion of sac was excised and the peritoneum closed with a continuous 0 Ethibond suture. After redundant portion of the sac was excised, the stump retracted up Unit #: [id number] #: [id number] Patient: MY WEISS into the internal ring. The internal ring was plugged with an extra large plug and this plug was sutured circumferentially with interrupted 0 Ethibond sutures. The patch was placed over the floor of the inguinal canal, where there was no evidence of any direct hernia and sutured in place with interrupted 0 Ethibond sutures. After this was complete, the wound was irrigated with antibiotic solution. It should be noted that the distal hernia sac all the way down to the cord was removed with the Bovie cautery. This was done before the repair was completed. After the hernia was repaired, the wound was irrigated with antibiotic solution, which was also used to presoak the mesh and the external oblique fascia was closed with a continuous 3-0 Vicryl suture. The Fab and Camper fascia were approximated with interrupted 3-0 Vicryl sutures. Skin edges approximated with stainless-steel skin clips and skin stapling device. Sterile dressings were applied externally. Estimated blood loss less than 50 mL. The patient received less than 1500 mL crystalloid solution during the procedure. Sponges and instrument counts were correct x3. No drains used. No complications. The patient was taken to the recovery room with stable vital signs in satisfactory condition. Dictated by... Juan Snow Jr. MReza TREJO/arlene TD: 12/18/2016 17:50 JOB #: [id number] OPERATIVE REPORT Page 1 of 1 X Juan Snow MD X PROCEDURE OPERATIVE NOTE
== END | disposition home or self-care (01) ==
LOC: CSUR 06:25
DX: K40.90 Unilateral inguinal hernia, without obstruction or gangrene, not specified as recurrent (principal); R01.0 Benign and innocent cardiac murmurs; F41.9 Anxiety disorder, unspecified; N40.0 Benign prostatic hyperplasia without lower urinary tract symptoms; Z79.899 Other long term (current) drug therapy
CPT/HCPCS: 88302; J0690; J2250; J2405; J3010

== ENCOUNTER → 2017-01-23 | Outpatient (CLI) | payer MEDICARE, OTHER ==
[2017-01-23 15:39] LABS: HEMATOCRIT 36.1 % (38.0-50.0); HEMOGLOBIN 12.1 gm/dL (13.0-16.0); MEAN CELL VOLUME 86.6 FL (83-96); MEAN CORPUSCULAR HEMOGLOBIN 28.9 PG (28-34); MEAN CORPUSCULAR HGB CONC 33.4 g/dL (30-36); MEAN PLATELET VOLUME 8.3 FL (6.5-11.5); RED BLOOD COUNT 4.17 X10e (3.90-5.60); RED CELL DISTRIBUTION WIDTH 15.6 % (11.0-15.5); WHITE BLOOD COUNT 5.9 X10e3 (4.0-10.5)
[2017-01-23 16:11] LABS: BUN/CREATININE RATIO 25.45; CALCIUM SERUM 9.3 mg/dL (8.4-10.2); CREATININE SERUM 1.1 mg/dL (0.6-1.4); GLOM FILT RATE Estimated 68.1 mL/min (>60); POTASSIUM 4.5 mmol/L (3.5-5.1)
== END | disposition home or self-care (01) ==
LOC: CAMB 14:25
PROVIDERS: Surgery
DX: Z01.812 Encounter for preprocedural laboratory examination (principal); K40.90 Unilateral inguinal hernia, without obstruction or gangrene, not specified as recurrent
CPT/HCPCS: 36415; 80048; 85027

== ENCOUNTER → 2017-01-29 | Day surgery (SDC) | payer MEDICARE, OTHER ==
--- NOTE | ~2017-01-29 | OR ---
Unit #: [id number] #: [id number] Patient: MY WEISS [id number] [id number] [facility]. [place], [place] [address] [id number] O MR#: [id number] NAME: MY WEISS ROOM: Date of Procedure: 01/29/2017 Admission Date: 01/29/2017 Surgeon: Juan Snow Jr., M.D. : 1945 Attending Physician: Juan Snow Jr., M.D. Primary Care Physician: Saad Farris M.D. OPERATIVE REPORT INDICATIONS FOR PROCEDURE The patient is a 71-year-old white male who recently was in the hospital and was seen at that time for bilateral inguinal hernias. He has had his left inguinal hernia, which was massively repaired and he is brought in this time for repair of his very large right inguinal hernia now. The patient understands the procedure including the risks, including that of recurrence, infection, chronic pain, nerve injury, and bleeding, and consents. PREOPERATIVE DIAGNOSIS Large right inguinal hernia. POSTOPERATIVE DIAGNOSIS Large right inguinal hernia noting a direct and indirect hernia. ANESTHESIA General with LMA and 0.5% Marcaine with epinephrine locally as a field block. CAD TECHNICIAN Rosanne Rosario. PROCEDURES PERFORMED Right inguinal hernia repair with large plug and patch being used with high ligation of the sac. DESCRIPTION OF PROCEDURE The patient was positioned in supine position. After being anesthetized, she was prepped and draped in routine fashion for right inguinal hernia repair. The right inguinal area was locally blocked with 0.5% Marcaine with epinephrine with a field block being performed, and after this was complete, a transverse incision was made approximately 4 inch in length over the right inguinal canal. This was carried down through subcutaneous tissue, through Fab and Camper fascia, the external oblique fascia. The fibers of the external oblique were split from the external ring, past the internal ring. The cord structures were elevated from the pubic tubercle. There was a very large indirect sac present with the floor of the inguinal canal being completely attenuated as well compatible with a direct component. After the hernia sac was freed up of the cord structures, it was opened. There was no evidence of any sliding component or no evidence of any incarcerated tissue within it. It was then high Unit #: [id number] #: [id number] Patient: MY WEISS ligated with 0 Ethibond suture x2. Redundant portion of sac was excised and stump retracted well up into the internal ring. There was no evidence of any bleeding. The stump of the sac was then tacked to an extra large plug, which was soaked in antibiotic solution. This was then placed in the area of the defect and sutured circumferentially with interrupted 0 Ethibond sutures. Basically, the floor of the inguinal canal was completely missing. The patch was placed over the floor of the inguinal canal after the plug was sutured in place and it was sutured circumferentially with interrupted 0 Ethibond sutures. The wound was irrigated and after hemostasis achieved with Bovie cautery, the external oblique fascia was closed over the top of the ilioinguinal nerve and the cord structures. Fab and Camper fascia were then closed with interrupted 3-0 Vicryl sutures. Skin edges approximated with stainless-steel skin clips and skin stapling device. Sterile dressings were applied externally. Estimated blood loss less than 50 mL. The patient received less than 1500 mL of crystalloid solution during the procedure. Sponges and instruments counts were correct x3. No drains used. No complications. The patient was taken to the recovery room with stable vital signs in satisfactory condition. Dictated by... Juan Snow Jr., M.D. JMB/arlene TD: 01/30/2017 07:50 JOB #: [id number] CC: Saad Farris M.D. OPERATIVE REPORT Page 1 of 1 X Juan Snow MD X PROCEDURE OPERATIVE NOTE
== END | disposition home or self-care (01) ==
LOC: CSUR 06:50
DX: K40.90 Unilateral inguinal hernia, without obstruction or gangrene, not specified as recurrent (principal); N40.0 Benign prostatic hyperplasia without lower urinary tract symptoms; K21.9 Gastro-esophageal reflux disease without esophagitis; I10 Essential (primary) hypertension; Z79.899 Other long term (current) drug therapy; Z87.891 Personal history of nicotine dependence
CPT/HCPCS: 88302; J0330; J0690; J1100; J2250; J2270; J2370; J2405; J2710; J3010